=== PATIENT | male | born 1960 | race Caucasian/White ===

== ENCOUNTER → 2017-11-21 | Outpatient (CLI) | payer OTHER | LOC: CFH 15:32 | PROVIDERS: ATTEND Nurse Practitioner | DX: S46.90 Unspecified injury of unspecified muscle, fascia and tendon at shoulder and upper arm level (principal); M75.50 Bursitis of unspecified shoulder; X58.XXXS Exposure to other specified factors, sequela ==

== ENCOUNTER 2019-08-19 07:13 | Inpatient (IN) | payer OTHER ==
[~2019-08-19] VITALS: Ht 170.2 cm; Wt 62.0 kg
[2019-08-19] MEDS ORDERED: FAMOTIDINE 20 MG TABLET ONE (07:44)
[2019-08-19] MEDS ORDERED: MAALOX/HYOSCYAMINE/LIDOCAINE 45 ML BTL ONE (07:44)
[2019-08-19] MEDS ORDERED: ONDANSETRON ODT 4 MG ONE (07:44)
--- NOTE | 2019-08-19 07:58 | NUR ---
THIS IS A 59 YO M WITH C/O EPIGASTRIC PAIN 910 SINCE YESTERDAY AFTER LUNCH. STATES THAT HE HAD A FEW GRANOLA BARS AND A PEAR. REPORTS USE OF IBUPROFEN DAILY FOR BACK PAIN. DENIES BLOOD IN EMESIS OR BLACK STOOLS. PATIENT STATES "THERE FEELS LIKE THERES A BOMB IN MY STOMACH. PATIENT IS IN NO ACUTE DISTRESS. RESPIRATIONS EVEN AND UNLABORED. BRADYCARDIA 40-50'S. CALL LIGHT IN REACH. DENIES FURTHER NEEDS AT THIS TIME.
[2019-08-19] MEDS ORDERED: ONDANSETRON ODT 4 MG PO ONE (08:00)
[2019-08-19] MEDS ORDERED: MAALOX/HYOSCYAMINE/LIDOCAINE 45 ML BTL PO ONE (08:00)
[2019-08-19] MEDS ORDERED: FAMOTIDINE 20 MG TABLET PO ONE (08:00)
--- NOTE | 2019-08-19 08:00 | NUR ---
PATIENT MEDICATED PER EMAR
[2019-08-19 08:10] LABS: MEAN CORPUSCULAR HEMOGLOBIN 31.3 pg (27.5-34.5); MEAN CORPUSCULAR HGB CONC 33.5 g/dL (33.2-36.2); MEAN CORPUSCULAR VOLUME 93.6 fL (81-97); MEAN PLATELET VOLUME 7.2 fL (7.4-10.4); PLATELET COUNT 307 x10^3/uL (130-400); RED CELL DISTRIBUTION WIDTH 13.1 % (9.4-14.8)
[2019-08-19 08:24] LABS: CALCIUM 9.4 mg/dL (8.5-10.1); CHLORIDE 102 mmol/L (98-107)
[2019-08-19 08:30] LABS: ALANINE AMINOTRANSFERASE 27 U/L (12-78); ALBUMIN 3.7 g/dL (3.4-5.0); ALKALINE PHOSPHATASE 80 U/L (45-117); ANION GAP 10 mmol/L (5-15); BILIRUBIN,TOTAL 0.8 mg/dL (0.2-1.0); CREATININE 1.17 mg/dL (0.7-1.3); TOTAL PROTEIN 7.6 g/dL (6.4-8.2)
[2019-08-19 08:46] LABS: BASOPHILS # (AUTO) 0.02 x10^3/uL (0-0.1); BASOPHILS % (AUTO) 0 % (0-1); EOSINOPHILS # (AUTO) 0.03 x10^3/uL (0-0.4); EOSINOPHILS % (AUTO) 0 % (1-7); LYMPHOCYTES # (AUTO) 0.89 x10^3/uL (1-3.4); LYMPHOCYTES % (AUTO) 7 % (22-44); MD SCAN; MONOCYTES # (AUTO) 0.53 x10^3/uL (0.2-0.8); MONOCYTES % (AUTO) 4 % (2-9); NEUTROPHILS # (AUTO) 11.86 x10^3/uL (1.8-6.8); NEUTROPHILS % (AUTO) 89 % (42-75)
[2019-08-19] MEDS ORDERED: MORPHINE SULFATE 4 MG/ML, 1ML IVPush PRN (09:00)
[2019-08-19] MEDS ORDERED: SODIUM CHLORIDE FLUSH 10ML SYR IVF ONE (09:00)
[2019-08-19] MEDS ORDERED: MORPHINE SULFATE 4 MG/ML, 1ML ONE (09:05)
[2019-08-19] MEDS ORDERED: OMNIPAQUE 350 MG/ML, 100ML BOTTLE ONE (09:26)
[2019-08-19] MEDS ORDERED: CEFOTETAN PMX 1GM/50ML 50 ML IV ONE (10:00)
[2019-08-19] MEDS ORDERED: HYDR-36 PO (10:27)
[2019-08-19] MEDS ORDERED: SODIUM CHLORIDE FLUSH 10ML SYR IVF PRN (10:30)
--- NOTE | 2019-08-19 10:53 | NUR ---
MEDICATION REQUESTED FROM PHARMACY
[2019-08-19 11:13] LABS: MICROSCOPIC NOT IND
[2019-08-19 11:23] LABS: CULTURE INDICATED? NO
[2019-08-19] MEDS ORDERED: CEFOTETAN PMX 1GM/50ML 50 ML IVPB ONE (11:30)
[2019-08-19] MEDS ORDERED: LACTATED RINGERS 1,000 ML IV SCH (12:30)
--- NOTE | 2019-08-19 13:03 | NUR ---
REPORT GIVEN TO ROSSY IN PREOP.
--- NOTE | 2019-08-19 13:11 | NUR ---
PATIENT TRANSFERED UPSTAIRS VIA GURNEY.
[2019-08-19] MEDS: LACTATED RINGERS 1,000 ML IV SCH ×2 (13:39→23:39)
[2019-08-19] MEDS ORDERED: MIDAZOLAM 1 MG/ML, 2ML ONE ×2 (13:56→14:15)
[2019-08-19] MEDS ORDERED: FENTANYL PF 100 MCG/2ML ONE ×2 (13:56→15:45)
[2019-08-19] MEDS ORDERED: GLYCOPYRROLATE 0.2MG/1ML, 5ML ONE ×2 (13:57→14:14)
[2019-08-19] MEDS ORDERED: ONDANSETRON 2MG/ML, 2ML ONE (13:57)
[2019-08-19] MEDS ORDERED: ROCURONIUM 10MG/ML,5ML ONE ×2 (13:57→14:14)
[2019-08-19] MEDS ORDERED: CEFAZOLIN 1,000 MG ONE ×2 (13:57→14:14)
[2019-08-19] MEDS ORDERED: PROPOFOL 10 MG/ML, 20ML ONE ×2 (13:57→14:14)
[2019-08-19] MEDS ORDERED: SUCCINYLCHOLINE 20 MG/ML, 10ML ONE (13:57)
[2019-08-19] MEDS ORDERED: NEOSTIGMINE 1 MG/ML, 10ML ONE (13:57)
[2019-08-19] MEDS ORDERED: DEXAMETHASONE 4 MG/ML, 1ML ONE ×2 (13:57→14:14)
[2019-08-19] MEDS ORDERED: ACETAMINOPHEN 325 MG TABLET PO PRN ×2 (14:00→15:30)
[2019-08-19] MEDS ORDERED: ONDANSETRON 2MG/ML, 2ML IV PRN ×2 (14:00→14:30)
[2019-08-19] MEDS ORDERED: PROMETHAZINE 25 MG/ML, 1ML IV PRN (14:00)
[2019-08-19] MEDS ORDERED: KETOROLAC 30 MG/1 ML IVPush ONE (14:00)
[2019-08-19] MEDS ORDERED: hydrALAzine 20 MG/ML, 1ML IV PRN (14:00)
[2019-08-19] MEDS ORDERED: EPHEDRINE 50 MG/ML, 1ML IVPush PRN ×2 (14:00→14:30)
[2019-08-19] MEDS ORDERED: MEPERIDINE/PF 25MG/ML,1ML IVPush PRN ×2 (14:00→14:30)
[2019-08-19] MEDS ORDERED: HYDROcodone/APAP 7.5-325MG/15ML UDC PO PRN (14:00)
[2019-08-19] MEDS ORDERED: LABETALOL 5MG/ML, 20ML IV PRN ×2 (14:00→14:30)
[2019-08-19] MEDS ORDERED: HYDROmorphone 2 MG/ML, 1ML IVPush PRN ×2 (14:00→14:30)
[2019-08-19] MEDS ORDERED: BUPIVACAINE/PF 0.5% ONE (14:06)
[2019-08-19] MEDS ORDERED: EPINEPHRINE 1 MG/ML, 1ML ONE (14:06)
[2019-08-19] MEDS ORDERED: LIDOCAINE-MPF 2% ,5ML ONE (14:14)
[2019-08-19] MEDS ORDERED: FENTANYL PF 250 MCG/5ML ONE (14:15)
[2019-08-19] MEDS ORDERED: EPHEDRINE 50 MG/ML, 1ML ONE ×2 (14:24→14:43)
[2019-08-19] MEDS ORDERED: OXYcodone 5 MG/5 ML ORAL.SOL UDC PO PRN (14:30)
[2019-08-19] MEDS ORDERED: MIDAZOLAM 1 MG/ML, 2ML IV PRN (14:30)
[2019-08-19] MEDS ORDERED: HALOPERIDOL 5 MG/ML IV PRN (14:30)
[2019-08-19] MEDS ORDERED: ALBUTEROL/IPRATROPIUM 2.5MG/0.5MG, 3 ML NPPB PRN (14:30)
[2019-08-19] MEDS ORDERED: EPHEDRINE 50 MG/ML, 1ML IM PRN (14:30)
[2019-08-19] MEDS ORDERED: DEXAMETHASONE 4 MG/ML, 1ML IV PRN (14:30)
[2019-08-19] MEDS ORDERED: SCOPOLAMINE PATCH, 1.5MG PATCH.TD72 TD PRN (14:30)
[2019-08-19] MEDS ORDERED: KETOROLAC 30 MG/1 ML IV PRN (14:30)
[2019-08-19] MEDS ORDERED: METOCLOPRAMIDE 5 MG/ML, 2ML IV PRN (14:30)
[2019-08-19] MEDS ORDERED: FENTANYL PF 100 MCG/2ML IV PRN (14:30)
[2019-08-19] MEDS ORDERED: ONDANSETRON 2MG/ML, 2ML IVPush PRN (15:30)
[2019-08-19] MEDS ORDERED: ENALAPRILAT 1.25 MG/ML, 2ML IVPush PRN (15:30)
[2019-08-19] MEDS ORDERED: LABETALOL 5MG/ML, 20ML IVPush PRN (15:30)
[2019-08-19] MEDS ORDERED: HYDROmorphone 1 MG/ML, 1ML INJ IVPush PRN (15:30)
[2019-08-19] MEDS ORDERED: OXYcodone 5 MG/5 ML ORAL.SOL UDC ONE (15:45)
[2019-08-19] MEDS: FENTANYL PF 100 MCG/2ML IV PRN ×3 (15:47→16:09)
[2019-08-19] MEDS ORDERED: KETOROLAC 30 MG/1 ML ONE (16:16)
[2019-08-19 16:55] VITALS: BP 107/63
[2019-08-19] MEDS ORDERED: BUPR300T49 PO (17:25)
[2019-08-19] MEDS: METRONIDAZOLE PMX 500MG/100ML 100 ML IVPB SCH (17:36)
[2019-08-19] MEDS: D5%-0.45NACL+KCL 20MEQ 1,000 ML IV SCH (17:36)
[2019-08-19] MEDS: OXYcodone/APAP 7.5/325MG TABLET PO PRN (19:37)
[2019-08-19 19:48] VITALS: BP 118/74
[2019-08-19] MEDS: CEFOTETAN PMX 1GM/50ML 50 ML IVPB SCH (23:28)
[2019-08-19 23:52] VITALS: BP 99/59
[2019-08-20] MEDS: METRONIDAZOLE PMX 500MG/100ML 100 ML IVPB SCH ×3 (01:26→17:44)
[2019-08-20] MEDS: OXYcodone/APAP 7.5/325MG TABLET PO PRN ×5 (01:26→22:18)
[2019-08-20] MEDS: D5%-0.45NACL+KCL 20MEQ 1,000 ML IV SCH ×2 (03:24→16:58)
[2019-08-20 04:03] VITALS: BP 105/61
[2019-08-20 05:52] LABS: BASOPHILS # (AUTO) 0.01 x10^3/uL (0-0.1); BASOPHILS % (AUTO) 0 % (0-1); EOSINOPHILS # (AUTO) 0.02 x10^3/uL (0-0.4); EOSINOPHILS % (AUTO) 0 % (1-7); LYMPHOCYTES # (AUTO) 0.68 x10^3/uL (1-3.4); LYMPHOCYTES % (AUTO) 8 % (22-44); MD NO; MEAN CORPUSCULAR HEMOGLOBIN 31.5 pg (27.5-34.5); MEAN CORPUSCULAR HGB CONC 33.2 g/dL (33.2-36.2); MEAN PLATELET VOLUME 7.3 fL (7.4-10.4); MONOCYTES # (AUTO) 0.64 x10^3/uL (0.2-0.8); MONOCYTES % (AUTO) 7 % (2-9); NEUTROPHILS # (AUTO) 7.33 x10^3/uL (1.8-6.8); NEUTROPHILS % (AUTO) 85 % (42-75); PLATELET COUNT 257 x10^3/uL (130-400); RED BLOOD COUNT 4.16 x10^6/uL (4.38-5.82); RED CELL DISTRIBUTION WIDTH 13.2 % (9.4-14.8)
[2019-08-20] MEDS ORDERED: HYDROmorphone 1 MG/ML, 1ML VIAL IVPush PRN (06:00)
[2019-08-20 07:09] VITALS: BP 108/65
[2019-08-20] MEDS: TAMSULOSIN 0.4 MG CAP.ER.24H PO SCH (09:16)
[2019-08-20] MEDS: LACTATED RINGERS 1,000 ML IV SCH ×2 (09:39→19:25)
[2019-08-20] MEDS ORDERED: ESCI10TA PO (09:47)
[2019-08-20] MEDS ORDERED: BUPR100T11 PO (09:47)
[2019-08-20] MEDS: CEFOTETAN PMX 1GM/50ML 50 ML IVPB SCH ×2 (11:25→23:25)
[2019-08-20 14:30] VITALS: BP 110/70
[2019-08-20 19:46] VITALS: BP 101/66
[2019-08-20] MEDS: BUPROPION SR 150 MG TABLET PO SCH (21:06)
[2019-08-21] MEDS: METRONIDAZOLE PMX 500MG/100ML 100 ML IVPB SCH ×3 (01:42→17:04)
[2019-08-21 02:05] VITALS: BP 101/62
[2019-08-21] MEDS: OXYcodone/APAP 7.5/325MG TABLET PO PRN ×4 (04:22→22:25)
[2019-08-21] MEDS: LACTATED RINGERS 1,000 ML IV SCH (04:57)
[2019-08-21] MEDS: D5%-0.45NACL+KCL 20MEQ 1,000 ML IV SCH (05:30)
[2019-08-21 07:16] VITALS: BP 147/83
[2019-08-21] MEDS: ESCITALOPRAM 10MG TABLET PO SCH (10:15)
[2019-08-21] MEDS: TAMSULOSIN 0.4 MG CAP.ER.24H PO SCH (10:15)
[2019-08-21] MEDS: BUPROPION SR 150 MG TABLET PO SCH ×2 (10:15→20:59)
[2019-08-21] MEDS: CEFOTETAN PMX 1GM/50ML 50 ML IVPB SCH ×2 (12:17→23:20)
[2019-08-21 12:35] VITALS: BP 119/73
[2019-08-21 20:11] VITALS: BP 119/75
[2019-08-22] MEDS: METRONIDAZOLE PMX 500MG/100ML 100 ML IVPB SCH ×2 (00:53→08:27)
[2019-08-22 02:01] VITALS: BP 136/75
[2019-08-22] MEDS: OXYcodone/APAP 7.5/325MG TABLET PO PRN ×3 (04:16→15:30)
[2019-08-22 07:05] VITALS: BP 135/77
[2019-08-22] MEDS: ESCITALOPRAM 10MG TABLET PO SCH ×2 (08:27→09:00)
[2019-08-22] MEDS: TAMSULOSIN 0.4 MG CAP.ER.24H PO SCH (08:27)
[2019-08-22] MEDS: BUPROPION SR 150 MG TABLET PO SCH (08:27)
[2019-08-22] MEDS: CEFOTETAN PMX 1GM/50ML 50 ML IVPB SCH (11:30)
[2019-08-22 15:09] VITALS: BP 135/81
[2019-08-22] MEDS ORDERED: FLU VACC QS2019-20 36MOS UP/PF 0.5 ML IM-VACC ONE (15:30)
[2019-08-22] MEDS ORDERED: AMOX1TAB64 PO (16:21)
[2019-08-22] MEDS ORDERED: METR500T PO (16:23)
== END 2019-08-22 16:46 | disposition home or self-care (01) | DRG 343 ==
LOC: ED 09:51 → EDIP 10:25 → 4NE 16:51 → DCLOUNGE 08-22 16:31
PROVIDERS: ADMIT Surgery; ATTEND Surgery
PROC: 0DTJ4ZZ Resection of Appendix, Percutaneous Endoscopic Approach (ICD-10-PCS; principal; 2019-08-19 14:45)
DX: K35.20 Acute appendicitis with generalized peritonitis, without abscess (principal); G89.29 Other chronic pain; M54.9 Dorsalgia, unspecified; J44.9 Chronic obstructive pulmonary disease, unspecified; Z87.891 Personal history of nicotine dependence; Z79.899 Other long term (current) drug therapy
CPT/HCPCS: 36415; 96374; 96375; 99285; J3490; S0020; 71045; 74177; 80053; 81003; 83690; 85025; 88304; 90686; 93005; C1729; G0378; J0171; J0690; J1100; J1885; J2250; J2405; J2704; J2710; J3010; Q0162; Q9967; J0330; J1170; J2270; J3480; J7120